=== PATIENT | female | born 1975 ===

== ENCOUNTER 2019-07-29 07:15 | Inpatient (IN) | payer OTHER ==
[~2019-07-29] VITALS: Ht 162.6 cm; Wt 74.4 kg
[2019-08-03] MEDS ORDERED: CODE1TAB37 PO (09:31)
[2019-08-03] MEDS ORDERED: NAPR500T14 PO (09:32)
== END 2019-08-03 09:53 | disposition home or self-care (01) | DRG 743 ==
LOC: O/R 07:15 → OB/GYN 07-31 05:46 → O/R 07-31 05:46 → SURG-SUITE 07-31 07:00 → OB/GYN 07-31 10:24
PROVIDERS: Urology; ADMIT Obstetrics & Gynecology
PROC: 0T788DZ Dilation of Bilateral Ureters with Intraluminal Device, Via Natural or Artificial Opening Endoscopic (ICD-10-PCS; 2019-07-31)
PROC: 0UT90ZZ Resection of Uterus, Open Approach (ICD-10-PCS; principal; 2019-07-31 07:00)
PROC: 0UT70ZZ Resection of Bilateral Fallopian Tubes, Open Approach (ICD-10-PCS; 2019-07-31 07:00)
DX: D25.1 Intramural leiomyoma of uterus (principal); N72 Inflammatory disease of cervix uteri; N92.1 Excessive and frequent menstruation with irregular cycle

== ENCOUNTER 2020-12-15 06:32 | Emergency (ER) | payer OTHER ==
[~2020-12-15] VITALS: Ht 162.6 cm; Wt 72.6 kg
[~2020-12-15 06:32] MED LIST: CODE1TAB37 PO; NAPR500T14 PO
[2020-12-15] MEDS ORDERED: PYRIDIUM DS200 MG PO (13:32)
== END 2020-12-15 13:59 | disposition home or self-care (01) ==
LOC: ER 06:32
DX: N39.0 Urinary tract infection, site not specified (principal); B96.29 Other Escherichia coli [E. coli] as the cause of diseases classified elsewhere; R10.32 Left lower quadrant pain